=== PATIENT | male | born 1955 | race Caucasian/White ===

== ENCOUNTER 2021-06-24 11:31 | Emergency (ER) | payer OTHER, MEDICAID, SELFPAY ==
[~2021-06-24] VITALS: Ht 170.2 cm; Wt 56.7 kg
--- NOTE | 2021-06-24 11:31 | NUR ---
Triaged and placed in room 1 for evaluation. Report received per medics.
--- NOTE | 2021-06-24 11:32 | NUR ---
Patient BIB[place]onne re weakness and fatigue while eating x 2 days. PMH COPD; on home oxygen. Mentioned has had 80 lb weight loss since January 2021. Received [employer] vaccine x 1 "2 weeks ago." Placed on 6 L oxygen via nasal cannula; VSS. O2 sat high 87-88%. Will continue to monitor.
[2021-06-24 11:40] VITALS: BP_SYST 113
[2021-06-24] MEDS ORDERED: IPRATROPIUM BROM 0.5 MG/2.5 ML VIAL.NEB (ATROVENT) INH ONE (11:50)
[2021-06-24] MEDS ORDERED: ALBUTEROL SULFATE 0.083% 2.5 MG/3 ML VIAL.NEB INH ONE (11:50)
--- NOTE | 2021-06-24 11:50 | NUR ---
COVID and MRSA swabs collected at bedside; sent to lab.
--- NOTE | 2021-06-24 12:19 | NUR ---
CXR done at bedside
[2021-06-24 12:20] LABS: BASOPHILS % (AUTO) 0.1 % (0.0-2.0); EOSINOPHILS # (AUTO) 0.1 K/uL (0.0-0.4); HEMATOCRIT 35.3 % (36-48); HEMOGLOBIN 11.9 g/dL (12.0-16.0); LYMPHOCYTES # (AUTO) 0.5 K/uL (1.0-5.5); LYMPHOCYTES % (AUTO) 4.1 % (20.5-51.5); MEAN CORPUSCULAR HEMOGLOBIN 32 pg (27-31); MEAN CORPUSCULAR HGB CONC 34 % (32-36); MEAN CORPUSCULAR VOLUME 95 fL (79.0-98.0); MONOCYTES # (AUTO) 0.9 K/uL (0.0-1.0); MONOCYTES % (AUTO) 7.8 % (1.7-9.3); NEUTROPHILS # (AUTO) 10.3 K/uL (1.8-7.7); PLATELET COUNT (AUTO) 285 K/uL (130-430); RED BLOOD CELL COUNT(AUTO) 3.71 MIL/uL (4.2-6.2); WHITE BLOOD COUNT (AUTO) 11.8 K/uL (4.8-10.8)
[2021-06-24 12:27] LABS: CALCIUM 9.1 mg/dL (8.4-11.0); CREATININE 0.86 mg/dL (0.55-1.30); POTASSIUM 4.6 mmol/L (3.5-5.1)
[2021-06-24 12:32] LABS: ALBUMIN 3.2 g/dL (3.4-4.8); TOTAL BILIRUBIN 0.2 mg/dL (0.0-1.0)
[2021-06-24 12:43] LABS: PROTHROMBIN TIME 10.3 SECS (9.5-12.5)
[2021-06-24] MEDS ORDERED: methylPREDNISolone SOD SUCC/PF 62.5 MG/ML VIAL IVP ONE (12:45)
[2021-06-24] MEDS ORDERED: LEVOFLOXACIN IN DEXTROSE 5 % 100 ML IV ONE ×2 (13:00→16:27)
--- NOTE | 2021-06-24 13:25 | NUR ---
Second MRSA swab collected at bedside; bilateral nares swabbed. Sent to lab.
--- NOTE | 2021-06-24 13:35 | NUR ---
ABG being done at bedside
[2021-06-24] MEDS ORDERED: IOHEXOL 350 mgI/mL, 150 ML INFUS..BTL IV ONE (14:10)
--- NOTE | 2021-06-24 14:30 | NUR ---
Patient transported for CTA.
--- NOTE | 2021-06-24 15:00 | NUR ---
Dr Denise to bedside to update patient re plan of care moving forward. Awaiting CTA results.
[2021-06-24 16:16] VITALS: BP_SYST 126
--- NOTE | 2021-06-24 16:17 | NUR ---
Patient to be transferred to [facility]. Is being transferred due to higher level of care. Receiving facility has accepting physician and available space. ER physician has signed transfer form. Patient or responsible constitution party has agreed to transfer and signed form. Patient belongings inventoried and will be sent with patient. Copy of nursing notes, lab reports, EKG, Physicians Orders and X-rays to be sent with patient. Report called to RN at receiving facility. Receiving physician is Dr Campos. Ambulance service has been called for transfer. ETA is TBD.
[2021-06-24] MEDS ORDERED: methylPREDNISolone SOD SUCC/PF 62.5 MG/ML VIAL ONE (16:26)
--- NOTE | 2021-06-24 16:30 | NUR ---
Report called to Brooke FOLEY at [facility]
--- NOTE | 2021-06-24 17:15 | NUR ---
Patient to be transferred to [facility]. Is being transferred due to higher level of care. Receiving facility has accepting physician and available space. ER physician has signed transfer form. Patient or responsible alliance party has agreed to transfer and signed form. Patient belongings inventoried and will be sent with patient. Copy of nursing notes, lab reports, EKG, Physicians Orders and X-rays to be sent with patient. Report called to at receiving facility. Receiving physician is Dr. Campos. [facility] transport ambulance service here to transfer.
--- NOTE | 2021-06-24 17:17 | NUR ---
Melo Tirado notified patient is en route via ambulance
== END 2021-06-24 16:14 | disposition short-term general hospital (02) ==
LOC: SED 11:31 → EDSEX 11:31 → SED 16:14
DX: J44.1 Chronic obstructive pulmonary disease with (acute) exacerbation (principal); Z20.822 Contact with and (suspected) exposure to COVID-19
CPT/HCPCS: 36415; 36600; 71045; 71275; 76376; 80053; 82803; 83605; 83880; 84484; 85025; 85610; 85730; 86710; 87040; 87081; 87426; 93005; 94640; 99285; J1956; J2930; J7613; Q9967; 99283